=== PATIENT | female | born 1935 | race Caucasian/White ===

== ENCOUNTER 2020-08-08 10:58 | Emergency (ER) | payer MEDICARE, BC ==
[2020-08-08] MEDS ORDERED: Sodium Chloride 0.9% 10 ML Syringe FLUSH PRN (11:05)
[2020-08-08] MEDS ORDERED: Pantoprazole 40 MG Vial IVPUSH ONE (11:36)
[2020-08-08 11:42] LABS: CHLORIDE,CL 101 mmol/L (98-107); PTT,PARTIAL THROMBOPLSTIN TIME 17.5 SEC (25.6-32.8); SODIUM,NA 139 mmol/L (136-145)
--- NOTE | 2020-08-08 12:09 | EDM.PDOC ---
ED HPI GENERAL MEDICAL PROBLEM - General Stated Complaint: WEAKNESS Time Seen by Provider: 08/08/20 11:00 Source of Information: Reports: Patient, Provider History Limitations: Reports: No Limitations - History of Present Illness INITIAL COMMENTS - FREE TEXT/NARRATIVE: Pt. presents to ER from clinic with complaints of weakness. Pt. states that she has been experiencing shortness of breath, fatigue, and weakness. She was seen in the clinic 08/05. At that time, her HGB was found to be 7.6. Pt. has a history of iron deficiency anemia and B12 deficiency. On 07/12 her HGB was 9.3. Pt. states that she is not on any anticoagulants. She denies any history of liver disease or alcohol consumption. Pt. states that she is very active. She states that she walks every day, and states that she mows her own lawn as well as her neighbors lawn. She denies any chest pain. No shortness of breath. Denies any hematemesis. No melena. Denies any hematochezia. Pt. is a [facility]. Her PCP stated that she contacted [facility] 1 call but they would not accept the patient. In clinic, pt. BP was in the 80s systolic. She has been tachycardic with HR in the 110 range. Pt. denies any abdominal pain. Onset: Today Onset Date: 08/08/20 Location: Reports: Generalized - Related Data Allergies Allergy/AdvReac Type Severity Reaction Status Date / Time clindamycin AdvReac Vomiting Verified 06/14/20 10:45 hydrocodone AdvReac Vomiting Verified 06/14/20 10:45 Penicillins AdvReac Vomiting Verified 06/14/20 10:45 Home Meds: Home Meds Aspirin 325 mg PO DAILY 06/14/20 [History] Calcium Carbonate/Vitamin D3 [Caltrate 600 + D Soft Chew Tab] 1 each PO BID 06/14/20 [History] Ferrous Sulfate [Iron] 325 mg PO DAILY 06/14/20 [History] Folic Acid 0.4 mg PO DAILY 06/14/20 [History] Ibuprofen 200 mg PO Q4H PRN 06/14/20 [History] [place]-3 Fatty Acids/Fish Oil [Fish Oil 1,000 mg Capsule] 2 each PO DAILY 06/14/20 [History] Quinapril [Accupril] 20 mg PO DAILY 06/14/20 [History] Simvastatin 10 mg PO BEDTIME 06/14/20 [History] Vitamin E 400 unit PO DAILY 06/14/20 [History] estradioL [Susie] 1 each TOP Q7D 06/14/20 [History] hydroCHLOROthiazide [Hydrochlorothiazide] 25 mg PO DAILY 06/14/20 [History] Past Medical History HEENT History: Reports: Cataract, Other (See Below) Other HEENT History: presbyopia, hypermetropia, astigmatism Cardiovascular History: Reports: High Cholesterol, Hypertension, Other (See Below) Other Cardiovascular History: valvular heart disease, nonrheumatic aortic valve stenosis Gastrointestinal History: Reports: Other (See Below) Other Gastrointestinal History: disorder of ileum Musculoskeletal History: Reports: Back Pain, Chronic, Other (See Below) Other Musculoskeletal History: spinal stenosis with neurogenic claudication, spondylolisthesis, SI pain Endocrine/Metabolic History: Reports: Hyperparathyroidism, Osteopenia, Vitamin D Deficiency, Other (See Below) Other Endocrine/Metabolic History: hyperglycemia, hyponatremia Hematologic History: Reports: Anemia, B12 Deficiency, Iron Deficiency - Past Surgical History Endocrine Surgical History: Reports: Parathyroidectomy Musculoskeletal Surgical History: Reports: Carpal Tunnel, Other (See Below) Other Musculoskeletal Surgeries/Procedures:: lumbar spinal fusion, ED ROS GENERAL - Review of Systems Review Of Systems: See Below Constitutional: Reports: Malaise, Weakness, Fatigue. Denies: Fever, Chills, Diaphoresis HEENT: Reports: No Symptoms Respiratory: Reports: Shortness of Breath Cardiovascular: Reports: No Symptoms Endocrine: Reports: No Symptoms GI/Abdominal: Denies: Abdominal Pain, Constipation, Diarrhea, Hematemesis, Hematochezia, Melena : Reports: No Symptoms Musculoskeletal: Reports: No Symptoms Skin: Reports: No Symptoms Neurological: Reports: No Symptoms Psychiatric: Reports: No Symptoms Hematologic/Lymphatic: Reports: No Symptoms Immunologic: Reports: No Symptoms ED EXAM, GENERAL - Physical Exam Exam: See Below Exam Limited By: No Limitations General Appearance: Alert, WD/WN, No Apparent Distress Nose: Normal Inspection, No Blood Throat/Mouth: Normal Inspection, Normal Lips, Normal Oropharynx, Normal Voice, No Airway Compromise Head: Atraumatic, Normocephalic Neck: Normal Inspection, Supple, Non-Tender Respiratory/Chest: No Respiratory Distress, Lungs Clear, Normal Breath Sounds, No Accessory Muscle Use, Chest Non-Tender Cardiovascular: Normal Peripheral Pulses, Regular Rate, Rhythm, No JVD, Systolic Murmur (Female) Exam: Deferred Rectal (Female) Exam: Hemorrhoids, Other (scant, dark, coffee ground type stool noted on exam.) Back Exam: Normal Inspection, Full Range of Motion Extremities: Normal Inspection, Normal Range of Motion, Non-Tender, No Pedal Edema, Normal Capillary Refill Neurological: Alert, Oriented, CN II-XII Intact, Normal Cognition, Normal Gait, Normal Reflexes, No Motor/Sensory Deficits Psychiatric: Normal Affect, Normal Mood Skin Exam: Warm, Dry, Intact, No Rash, Pallor Lymphatic: No Adenopathy Course - Orders/Labs/Meds Orders: Active Orders 24 hr Category Date Time Status CORONAVIRUS COVID-19 CRYSTAL [MOLEC] Stat Lab 08/08/20 11:52 Ordered FECAL OCCULT BLOOD,POC DIAG [POC] Stat Lab 08/08/20 11:08 Ordered RED BLOOD CELLS LP [BBK] Urgent Lab 08/08/20 11:50 Ordered TYPE AND SCREEN [BBK] Urgent Lab 08/08/20 11:50 Ordered Sodium Chloride 0.9% [Saline Flush] Med 08/08/20 11:05 Active 10 ml FLUSH ASDIRECTED PRN Blood Transfusion Reflex Orders [OM.PC] Routine Oth 08/08/20 11:07 Ordered Blood Transfusion Reflex Orders [OM.PC] Routine Oth 08/08/20 11:50 Ordered Peripheral IV Insertion Adult [OM.PC] Routine Oth 08/08/20 11:06 Ordered Transfuse Red Blood Cells [COMM] Routine Oth 08/08/20 11:07 Ordered Medication Orders Sodium Chloride (Sodium Chloride 0.9% 10 Ml Syringe) 10 ml FLUSH ASDIRECTED PRN PRN Reason: Keep Vein Open Labs: Laboratory Tests 08/08/20 08/08/20 08/08/20 Range/Units 11:08 11:08 11:08 WBC 8.7 (4.0-10.0) x10^3/uL RBC 1.79 L (4.00-5.50) x10^6/uL Hgb 5.9 L* (12.0-16.0) g/dL Hct 19.3 L (33.0-47.0) % MCV 107.8 H (78.0-93.0) fL MCH 33.0 H (26.0-32.0) pg MCHC 30.6 L (32.0-36.0) g/dL RDW Coeff of Anabelle 16.2 H (10.0-15.0) % Plt Count 243 (130-400) x10^3/uL Neut % (Auto) 87.4 H (50.0-80.0) % Lymph % (Auto) 8.5 L (25.0-50.0) % Cuming % (Auto) 3.8 (2.0-11.0) % Eos % (Auto) 0.1 (0.0-4.0) % Baso % (Auto) 0.2 (0.2-1.2) % PT 10.7 (9.9-12.5) SEC INR 1.0 L (2.0-3.5) APTT 17.5 L (25.6-32.8) SEC Sodium 139 (136-145) mmol/L Potassium 3.0 L (3.5-5.1) mmol/L Chloride 101 (98-107) mmol/L Carbon Dioxide 30 (21-32) mmol/L Anion Gap 11.0 (5-15) mmol/L BUN 32 H (7-18) mg/dL Creatinine 0.8 (0.55-1.02) mg/dL Est Cr Clr Drug Dosing TNP Estimated GFR (MDRD) > 60 Glucose 129 H (70-99) mg/dL Calcium 9.2 (8.5-10.1) mg/dL Corrected Calcium 10.3 H (8.5-10.1) mg/dL Magnesium 1.7 L (1.8-2.4) mg/dL Total Bilirubin 0.2 (0.2-1.0) mg/dL AST 21 (15-37) U/L ALT 18 (14-59) U/L Alkaline Phosphatase 40 L (46-116) U/L C-Reactive Protein < 0.2 (<=0.9) mg/dL Total Protein 8.3 H (6.4-8.2) g/dL Albumin 2.6 L (3.4-5.0) g/dL Globulin 5.7 Albumin/Globulin Ratio 0.46 TSH, Ultra Sensitive 4.882 H (0.358-3.74) uIU/mL Meds: Medications Generic Name Dose Route Start Last Admin Trade Name Bishop PRN Reason Stop Dose Admin Sodium Chloride 10 ml 08/08/20 11:05 Sodium Chloride 0.9% 10 Ml Syringe FLUSH ASDIRECTED PRN Keep Vein Open Discontinued Medications Generic Name Dose Route Start Last Admin Trade Name Bishop PRN Reason Stop Dose Admin Pantoprazole Sodium 40 mg 08/08/20 11:36 08/08/20 11:45 Pantoprazole 40 Mg Vial IVPUSH 08/08/20 11:37 40 mg ONETIME ONE Administration - Re-Assessments/Exams Free Text/Narrative Re-Assessment/Exam: IV access established. 1 unit of O neg blood was ordered for the patient. She was also given protonix 40mg IV. Departure - Departure Time of Disposition: 12:13 Disposition: DC/Tfer to [facility] 02 Clinical Impression: GI bleed - Discharge Information - Problem List Review Problem List Initiated/Reviewed/Updated: Yes - My Orders Last 24 Hours: My Active Orders 08/08/20 11:05 Sodium Chloride 0.9% [Saline Flush] 10 ml FLUSH ASDIRECTED PRN 08/08/20 11:06 Peripheral IV Insertion Adult [OM.PC] Routine 08/08/20 11:07 Blood Transfusion Reflex Orders [OM.PC] Routine Transfuse Red Blood Cells [COMM] Routine 08/08/20 11:08 FECAL OCCULT BLOOD,POC DIAG [POC] Stat 08/08/20 11:50 RED BLOOD CELLS LP [BBK] Urgent TYPE AND SCREEN [BBK] Urgent Blood Transfusion Reflex Orders [OM.PC] Routine 08/08/20 11:52 CORONAVIRUS COVID-19 CRYSTAL [MOLEC] Stat - Assessment/Plan Last 24 Hours: My Active Orders 08/08/20 11:05 Sodium Chloride 0.9% [Saline Flush] 10 ml FLUSH ASDIRECTED PRN 08/08/20 11:06 Peripheral IV Insertion Adult [OM.PC] Routine 08/08/20 11:07 Blood Transfusion Reflex Orders [OM.PC] Routine Transfuse Red Blood Cells [COMM] Routine 08/08/20 11:08 FECAL OCCULT BLOOD,POC DIAG [POC] Stat 08/08/20 11:50 RED BLOOD CELLS LP [BBK] Urgent TYPE AND SCREEN [BBK] Urgent Blood Transfusion Reflex Orders [OM.PC] Routine 08/08/20 11:52 CORONAVIRUS COVID-19 CRYSTAL [MOLEC] Stat Plan: Pt. will be transferred to [facility] in [place]. Dr. Clark accepts the patient in transfer. Pt. indicates that she is a code 1. Pt. will be transported via [facility] ground ambulance.
== END 2020-08-08 14:18 | disposition short-term general hospital (02) ==
LOC: VM.ED 10:58
DX: K92.2 Gastrointestinal hemorrhage, unspecified (principal); I10 Essential (primary) hypertension; Z88.0 Allergy status to penicillin; Z88.1 Allergy status to other antibiotic agents; Z88.5 Allergy status to narcotic agent; Z20.822 Contact with and (suspected) exposure to COVID-19; Z79.82 Long term (current) use of aspirin
CPT/HCPCS: 36415; 36430; 80053; 83735; 84443; 85025; 85610; 85730; 86140; 86850; 86900; 86901; 86920; 86922; 96374; 99284; 99285-25; C9113; G0328; P9016; U0002

== ENCOUNTER 2021-01-23 13:27 | Emergency (ER) | payer MEDICARE, BC ==
--- NOTE | 2021-01-23 13:47 | EDM.PDOC ---
ED HPI GENERAL MEDICAL PROBLEM - General Chief Complaint: Laceration Stated Complaint: CUT FINGER Time Seen by Provider: 01/23/21 13:35 Source of Information: Reports: Patient - History of Present Illness INITIAL COMMENTS - FREE TEXT/NARRATIVE: Bhavani is an 85 y/o female who is brought to the ER with a left middle finger injury. She was using her lawn screw remover and did not shut it off and stuck her finger in the chute to unplug it. She presents with a significant injury to the finger. - Related Data Allergies Allergy/AdvReac Type Severity Reaction Status Date / Time clindamycin AdvReac Vomiting Verified 01/23/21 13:30 hydrocodone AdvReac Vomiting Verified 01/23/21 13:30 Penicillins AdvReac Vomiting Verified 01/23/21 13:30 Home Meds: Home Meds Aspirin 162 mg PO DAILY 06/14/20 [History] Calcium Carbonate/Vitamin D3 [Caltrate 600 + D Soft Chew Tab] 2 tab PO DAILY 06/14/20 [History] Ferrous Sulfate [Iron] 325 mg PO TID 06/14/20 [History] Folic Acid 0.4 mg PO DAILY 06/14/20 [History] Ibuprofen 200 mg PO Q4H PRN 06/14/20 [History] [place]-3 Fatty Acids/Fish Oil [Fish Oil 1,000 mg Capsule] 2 tab PO DAILY 06/14/20 [History] Quinapril [Accupril] 20 mg PO DAILY 06/14/20 [History] Simvastatin 10 mg PO BEDTIME 06/14/20 [History] Vitamin E 400 unit PO DAILY 06/14/20 [History] estradioL [Susie] 1 each TOP Q7D 06/14/20 [History] hydroCHLOROthiazide [Hydrochlorothiazide] 25 mg PO DAILY 06/14/20 [History] Past Medical History HEENT History: Reports: Cataract, Other (See Below) Other HEENT History: presbyopia, hypermetropia, astigmatism Cardiovascular History: Reports: High Cholesterol, Hypertension, Other (See Below) Other Cardiovascular History: valvular heart disease, nonrheumatic aortic valve stenosis Gastrointestinal History: Reports: Other (See Below) Other Gastrointestinal History: disorder of ileum Musculoskeletal History: Reports: Back Pain, Chronic, Other (See Below) Other Musculoskeletal History: spinal stenosis with neurogenic claudication, spondylolisthesis, SI pain Endocrine/Metabolic History: Reports: Hyperparathyroidism, Osteopenia, Vitamin D Deficiency, Other (See Below) Other Endocrine/Metabolic History: hyperglycemia, hyponatremia Hematologic History: Reports: Anemia, B12 Deficiency, Iron Deficiency - Past Surgical History Endocrine Surgical History: Reports: Parathyroidectomy Musculoskeletal Surgical History: Reports: Carpal Tunnel, Other (See Below) Other Musculoskeletal Surgeries/Procedures:: lumbar spinal fusion, Social & Family History - Family History Family Medical History: No Pertinent Family History ED ROS GENERAL - Review of Systems Review Of Systems: See Below Constitutional: Reports: No Symptoms HEENT: Reports: No Symptoms Respiratory: Reports: No Symptoms Cardiovascular: Reports: No Symptoms Endocrine: Reports: No Symptoms GI/Abdominal: Reports: No Symptoms : Reports: No Symptoms Musculoskeletal: Reports: Other (Left middle finger injury) Skin: Reports: No Symptoms Neurological: Reports: No Symptoms Psychiatric: Reports: No Symptoms Hematologic/Lymphatic: Reports: No Symptoms ED EXAM, SKIN/RASH Exam: See Below Exam Limited By: No Limitations General Appearance: Alert, WD/WN, No Apparent Distress (Elderly female) Ears: Hearing Grossly Normal Throat/Mouth: Normal Voice Head: Atraumatic, Normocephalic Respiratory/Chest: No Respiratory Distress GI/Abdominal: Soft (Female) Exam: Deferred Rectal (Female) Exam: Deferred Extremities: Other (Note irregular laceration, entire distal end of left middle finger is mangled and nail gone, bone exposed, mildly bleeding.) Neurological: Alert, Oriented, CN II-XII Intact Psychiatric: Normal Affect, Normal Mood Skin: Warm, Dry, Intact, Normal Color Course - Vital Signs Text/Narrative:: 1335 The patient was seen by the HOUSING DEVELOPMENT SPECIALIST. Xray ordered. Pressure dressing applied to the finger. 1345 Xray reviewed, note distal phalanx fractured in multiple pieces. Pressure dressing applied. [facility] contacted and Dr Simmons accepted the patient to the ER. Ancef 1gm IVP and Fentanyl 25mcg IVP ordered. Tetanus encouraged, but patient undecided if she will take one since she became quite ill with her last one. 1410 [id number] here in the ER and will take patient to [place] via POV. She remained stable until departure for [facility]. Last Recorded V/S: Last Vital Signs Temp 36.8 C 01/23/21 13:30 Pulse 115 H 01/23/21 13:30 Resp 20 11/04/21 13:30 BP 174/85 H 01/23/21 13:30 Pulse Ox 96 01/23/21 13:30 - Orders/Labs/Meds Orders: Active Orders 24 hr Category Date Time Status NPO [Nothing Per Oral Diet] [DIET] Diet 01/23/21 Dinner Ordered Fingers Third Digit Lt F2 [CR] Stat Exams 01/23/21 13:37 Ordered Meds: Medications Discontinued Medications Generic Name Dose Route Start Last Admin Trade Name Bishop PRN Reason Stop Dose Admin Cefazolin Sodium 1 gm 01/23/21 13:55 Cefazolin 1 Gm Vial IVPUSH 01/23/21 13:56 ONETIME ONE Fentanyl 25 mcg 01/23/21 13:54 Fentanyl 50 Mcg/Ml Sdv IVPUSH 01/23/21 13:55 ONETIME ONE Departure - Departure Time of Disposition: 14:03 Disposition: DC/Tfer to Acute Hospital 02 Condition: Good Clinical Impression: Accidental injury Fracture, finger, distal phalanx, open Qualifiers: Encounter type: initial encounter Finger: middle finger Fracture alignment: displaced Laterality: left Qualified Code(s): S62.633B - Displaced fracture of distal phalanx of left middle finger, initial encounter for open fracture Contact with powered lawnmower as cause of accidental injury Qualifiers: Encounter type: initial encounter Qualified Code(s): W28.XXXA - Contact with powered project control officer, initial encounter - Discharge Information Referrals: So Frank MD [Primary Care Provider] - Forms: ED Department Discharge, Interfacility Transfer EMTALA Additional Instructions: -Transfer to [facility] to Dr Simmons Sepsis Event Note (ED) - Focused Exam Vital Signs: Vital Signs Temp Pulse Resp BP Pulse Ox 01/23/21 13:30 36.8 C 115 H 20 174/85 H 96 - Problem List & Annotations (1) Accidental injury SNOMED Code(s): 253560085 Code(s): T14.90XA - INJURY, UNSPECIFIED, INITIAL ENCOUNTER Status: Acute Current Visit: Yes (2) Contact with powered lawnmower as cause of accidental injury SNOMED Code(s): 675918228, 669140210 Code(s): W28.XXXA - CONTACT WITH POWERED MUD ANALYSIS SUPERVISOR, INITIAL ENCOUNTER Status: Acute Current Visit: Yes Qualifiers: Encounter type: initial encounter Qualified Code(s): W28.XXXA - Contact with powered project control officer, initial encounter (3) Fracture, finger, distal phalanx, open SNOMED Code(s): 22939473 Code(s): S62.639B - DISP FX OF DISTAL PHALANX OF UNSP FINGER, INIT FOR OPN FX Status: Acute Current Visit: Yes Annotation/Comment:: Xrays sent to [facility]. Wound dressed here in the ER. Ancer 1gm IVP and Fentanyl 25mcg IVP given. Transfer to [facility] for Ortho consult. Qualifiers: Encounter type: initial encounter Finger: middle finger Fracture alignment: displaced Laterality: left Qualified Code(s): S62.633B - Displaced fracture of distal phalanx of left middle finger, initial encounter for open fracture - Problem List Review Problem List Initiated/Reviewed/Updated: Yes - My Orders Last 24 Hours: My Active Orders 01/23/21 13:37 Fingers Third Digit Lt F2 [CR] Stat 01/23/21 Dinner NPO [Nothing Per Oral Diet] [DIET] - Assessment/Plan Last 24 Hours: My Active Orders 01/23/21 13:37 Fingers Third Digit Lt F2 [CR] Stat 01/23/21 Dinner NPO [Nothing Per Oral Diet] [DIET] Plan: See above
[2021-01-23] MEDS ORDERED: fentaNYL 50 MCG/ML SDV IVPUSH ONE (13:54)
[2021-01-23] MEDS ORDERED: ceFAZolin 1 GM Vial IVPUSH ONE (13:55)
[2021-01-23] MEDS ORDERED: Ondansetron 4 MG/2 ML SDV IVPUSH ONE (14:15)
--- NOTE | 2021-01-23 14:17 | CR ---
[id number] RAD/RAD Fingers Left EXAM: 3 VIEWS LEFT 3RD DIGIT. INDICATION: FINGER INJURY,CAUGHT IN PLATFORM INSPECTOR. COMPARISON: None. DISCUSSION: Acute multi fragmentary fracture involving the distal phalanx of the 3rd digit. There are numerous fracture fragments identified. There is a significant associated soft tissue defect. Degenerative changes most pronounced involving the visualized distal interphalangeal joints IMPRESSION: 1. As above. Adan Beckford DO 01/23/21 1416 Thank you for allowing us to participate in the care of your patient.
== END 2021-01-23 14:26 | disposition short-term general hospital (02) ==
LOC: VM.ED 13:27
DX: S62.633B Displaced fracture of distal phalanx of left middle finger, initial encounter for open fracture (principal); E78.00 Pure hypercholesterolemia, unspecified; I10 Essential (primary) hypertension; Z88.0 Allergy status to penicillin; Z88.1 Allergy status to other antibiotic agents; Z88.5 Allergy status to narcotic agent; Z79.82 Long term (current) use of aspirin; Z79.899 Other long term (current) drug therapy; W28.XXXA Contact with powered lawn mower, initial encounter
CPT/HCPCS: 73140-F2; 96374; 96375; 99283; 99283-25; J0690; J2405; J3010

== ENCOUNTER 2021-01-25 11:35 | Emergency (ER) | payer MEDICARE, BC ==
[2021-01-25] MEDS ORDERED: Take Home: Acetaminophen/Codeine 300 MG/30 MG, 5 Tab Pack PO ONE (12:59)
--- NOTE | 2021-01-25 13:28 | EDM.PDOC ---
ED HPI GENERAL MEDICAL PROBLEM - General Stated Complaint: FINGER WONT STOP BLEEDING Time Seen by Provider: 01/25/21 11:45 Source of Information: Reports: Patient, Family History Limitations: Reports: No Limitations - History of Present Illness INITIAL COMMENTS - FREE TEXT/NARRATIVE: Pt. states that she caught her finger in the daycare assistant on , amputating the tip of the finger. She underwent sugery to debride and close the injury at [facility] at that time. Several sutures were placed, and a dressing was applied. She states that she started bleeding through the dressing last night. She states that she is not anticoagulated. Denies any injury elsewhere. Onset: Today Onset Date: 01/25/21 Location: Reports: Upper Extremity, Left - Related Data Allergies Allergy/AdvReac Type Severity Reaction Status Date / Time clindamycin AdvReac Vomiting Verified 01/25/21 13:34 hydrocodone AdvReac Vomiting Verified 01/25/21 13:34 Penicillins AdvReac Vomiting Verified 01/25/21 13:34 Home Meds: Home Meds Aspirin 162 mg PO DAILY 06/14/20 [History] Calcium Carbonate/Vitamin D3 [Caltrate 600 + D Soft Chew Tab] 2 tab PO DAILY 06/14/20 [History] Ferrous Sulfate [Iron] 325 mg PO TID 06/14/20 [History] Folic Acid 0.4 mg PO DAILY 06/14/20 [History] Ibuprofen 200 mg PO Q4H PRN 06/14/20 [History] [place]-3 Fatty Acids/Fish Oil [Fish Oil 1,000 mg Capsule] 2 tab PO DAILY 06/14/20 [History] Quinapril [Accupril] 20 mg PO DAILY 06/14/20 [History] Simvastatin 10 mg PO BEDTIME 06/14/20 [History] Vitamin E 400 unit PO DAILY 06/14/20 [History] estradioL [Susie] 1 each TOP Q7D 06/14/20 [History] hydroCHLOROthiazide [Hydrochlorothiazide] 25 mg PO DAILY 06/14/20 [History] Past Medical History HEENT History: Reports: Cataract, Other (See Below) Other HEENT History: presbyopia, hypermetropia, astigmatism Cardiovascular History: Reports: High Cholesterol, Hypertension, Other (See Below) Other Cardiovascular History: valvular heart disease, nonrheumatic aortic valve stenosis Gastrointestinal History: Reports: Other (See Below) Other Gastrointestinal History: disorder of ileum Musculoskeletal History: Reports: Back Pain, Chronic, Other (See Below) Other Musculoskeletal History: spinal stenosis with neurogenic claudication, spondylolisthesis, SI pain Endocrine/Metabolic History: Reports: Hyperparathyroidism, Osteopenia, Vitamin D Deficiency, Other (See Below) Other Endocrine/Metabolic History: hyperglycemia, hyponatremia Hematologic History: Reports: Anemia, B12 Deficiency, Iron Deficiency - Past Surgical History Endocrine Surgical History: Reports: Parathyroidectomy Musculoskeletal Surgical History: Reports: Carpal Tunnel, Other (See Below) Other Musculoskeletal Surgeries/Procedures:: lumbar spinal fusion, Social & Family History - Family History Family Medical History: No Pertinent Family History ED ROS GENERAL - Review of Systems Review Of Systems: Comprehensive ROS is negative, except as noted in HPI. ED EXAM, GENERAL - Physical Exam Exam: See Below Exam Limited By: No Limitations General Appearance: Alert, WD/WN, No Apparent Distress Extremities: Other (Evidence of surgical repair to tip of L finger. [address]. Active bleeding from several areas.) Course - Orders/Labs/Meds Labs: Laboratory Tests 01/25/21 01/25/21 01/25/21 Range/Units 12:45 12:45 12:45 WBC 2.9 L (4.0-10.0) x10^3/uL RBC 2.68 L (4.00-5.50) x10^6/uL Hgb 8.8 L (12.0-16.0) g/dL Hct 27.9 L (33.0-47.0) % MCV 104.1 H (78.0-93.0) fL MCH 32.8 H (26.0-32.0) pg MCHC 31.5 L (32.0-36.0) g/dL RDW Coeff of Anabelle 14.0 (10.0-15.0) % Plt Count 152 (130-400) x10^3/uL Immature Gran % (Auto) 0.00 (0.00-0.43) % Neut % (Auto) 69.9 (50.0-80.0) % Lymph % (Auto) 21.5 L (25.0-50.0) % [place] % (Auto) 8.0 (2.0-11.0) % Eos % (Auto) 0.3 (0.0-4.0) % Baso % (Auto) 0.3 (0.2-1.2) % Neut # (Auto) 2.0 (1.8-7.7) x10^3/uL Lymph # (Auto) 0.6 L (1.0-4.8) x10^3/uL [place]oup # (Auto) 0.2 (0.0-0.8) x10^3/uL Eos # (Auto) 0.0 (0.0-0.5) x10^3/uL Baso # (Auto) 0.0 (0.0-0.2) x10^3/uL Immature Gran # (Auto) 0.00 (0.00-0.07) x10^3/uL PT 10.9 (9.9-12.5) SEC INR 1.0 L (2.0-3.5) APTT 27.8 (25.6-32.8) SEC Meds: Medications Discontinued Medications Generic Name Dose Route Start Last Admin Trade Name Bishop PRN Reason Stop Dose Admin Acetaminophen/Codeine Phosphate 1 packet 01/25/21 12:59 01/25/21 13:27 Take Home: Acetaminophen/Codeine 300 Mg/30 Mg, 5 Tab Pack PO 01/25/21 13:00 1 packet ONETIME ONE Administration - Re-Assessments/Exams Free Text/Narrative Re-Assessment/Exam: Pressure dressing applied but was unsuccessful. Hemostatic gauze applied but it continued to bleed. Areas of active bleeding were small and were cauterized with silver nitrate. Hemostatic gauze applied over the area and tube gauze pressure dressing applied. Pt. observed. No further bleeding noted. Departure - Departure Time of Disposition: 13:00 Disposition: Home, Self-Care 01 Clinical Impression: Post-op bleeding - Discharge Information Instructions: Acetaminophen; Hydrocodone oral solution Referrals: So Frank MD [Primary Care Provider] - Additional Instructions: Lortab 5/325mg 1 every 4-6 hours as needed for pain Keep hand raised above heart Return to ER if you bleed through the dressing. Follow-up with PCP/surgeon as needed. - Problem List Review Problem List Initiated/Reviewed/Updated: Yes - Assessment/Plan Plan: Pt. was discharged. Advised to keep her hand elevated above her heart. Recheck in clinic in 4-5 days. Sutures out per hand surgery recommendation. Return to ER if continued bleeding is noted.
== END 2021-01-25 13:20 | disposition home or self-care (01) ==
LOC: VM.ED 11:35
DX: M96.831 Postprocedural hemorrhage of a musculoskeletal structure following other procedure (principal); S61.219A Laceration without foreign body of unspecified finger without damage to nail, initial encounter; E78.00 Pure hypercholesterolemia, unspecified; I10 Essential (primary) hypertension; Z88.0 Allergy status to penicillin; Z88.1 Allergy status to other antibiotic agents; Z88.5 Allergy status to narcotic agent; Z79.82 Long term (current) use of aspirin; Z79.899 Other long term (current) drug therapy; W23.0XXA Caught, crushed, jammed, or pinched between moving objects, initial encounter
CPT/HCPCS: 12001; 36415; 85025; 85610; 85730; 99283; 99283-25; A9270-GY

== ENCOUNTER 2022-11-06 08:21 | Day surgery (SDC) | payer MEDICARE, BC ==
[~2022-11-06 08:21] MED LIST: Lactated Ringers 1,000 ML IV SCH
[2022-11-06] MEDS ORDERED: Lidocaine 4% 5 ML Amp ONE (10:30)
[2022-11-06] MEDS ORDERED: Propofol 200 MG/20 ML SDV ONE (10:43)
[2022-12-03] MEDS ORDERED: Lactated Ringers 1,000 ML IV SCH (07:00)
== END 2022-11-06 12:16 | disposition home or self-care (01) ==
LOC: VM.SDS 08:21
PROVIDERS: ATTEND Student in an Organized Health Care Education/Training Program
DX: K29.50 Unspecified chronic gastritis without bleeding (principal); K31.5 Obstruction of duodenum; K31.89 Other diseases of stomach and duodenum; I10 Essential (primary) hypertension; E78.00 Pure hypercholesterolemia, unspecified; I35.0 Nonrheumatic aortic (valve) stenosis; E21.3 Hyperparathyroidism, unspecified; E53.8 Deficiency of other specified B group vitamins; E87.1 Hypo-osmolality and hyponatremia; D50.0 Iron deficiency anemia secondary to blood loss (chronic); C88.0 Waldenstrom macroglobulinemia; Z98.890 Other specified postprocedural states; Z88.0 Allergy status to penicillin; Z88.1 Allergy status to other antibiotic agents; Z88.5 Allergy status to narcotic agent; Z88.6 Allergy status to analgesic agent; Z79.899 Other long term (current) drug therapy
CPT/HCPCS: 00731; 88305; C1726; J2704; J7120

== ENCOUNTER 2024-04-14 15:00 | Emergency (ER) | payer MEDICARE, BC | END 2024-04-14 16:50 | disposition home or self-care (01) | LOC: VM.ED 15:00 | DX: S72.001A Fracture of unspecified part of neck of right femur, initial encounter for closed fracture (principal); I10 Essential (primary) hypertension; E78.00 Pure hypercholesterolemia, unspecified; Z88.0 Allergy status to penicillin; Z88.1 Allergy status to other antibiotic agents; Z88.8 Allergy status to other drugs, medicaments and biological substances; Z79.899 Other long term (current) drug therapy; Z90.710 Acquired absence of both cervix and uterus; W19.XXXA Unspecified fall, initial encounter | CPT/HCPCS: 72192; 99283 ==

== ENCOUNTER 2024-07-20 08:22 | Inpatient (IN) | payer MEDICARE, BC ==
[2024-07-20] MEDS ORDERED: Ondansetron 4 MG Tab.DIS PO PRN (13:35)
[2024-07-20] MEDS: Acetaminophen 325 MG Tab PO SCH ×2 (17:24→21:05)
[2024-07-20] MEDS: Calcium Carbonate/Vitamin D3 1250 MG-5 MCG Tab PO SCH (17:24)
[2024-07-20] MEDS ORDERED: Mineral Oil/Petrolatum Ophth Oint 3.5 GM Tube EYEBOTH SCH (21:00)
[2024-07-20] MEDS ORDERED: REFRESH OPTIVE EYEBOTH SCH (21:00)
[2024-07-20] MEDS: Aloe Vera/Sodium Chloride Gel 14.1 GM Tube NAS SCH (21:02)
[2024-07-20] MEDS: Melatonin 3 MG Tab PO SCH (21:03)
[2024-07-20] MEDS: Sennosides/Docusate Sodium 50-8.6 MG Tab PO SCH (21:04)
[2024-07-20] MEDS: Famotidine 20 MG Tab PO SCH (21:05)
[2024-07-20] MEDS: REFRESH OPTIVE EYEBOTH SCH (21:08)
[2024-07-20] MEDS: Calcium Carbonate 750 MG Tab.Chew PO SCH (21:15)
[2024-07-20] MEDS: Melatonin 3 MG Tab PO ONE (23:11)
[2024-07-20] MEDS: oxyCODONE 5 MG Tab PO PRN (23:11)
[2024-07-21 07:15] LABS: BASOPHILS PERCENT AUTO 0.3 % (0.2-1.2); EOSINOPHILS PERCENT AUTO 0.9 % (0.0-4.0); HEMOGLOBIN 7.3 g/dL (12.0-16.0); LYMPHOCYTES ABSOLUTE AUTO 0.7 x10^3/uL (1.0-4.8); LYMPHOCYTES PERCENT AUTO 18.6 % (25.0-50.0); MEAN CORPUSCULAR HEMOGLOBIN 29.8 pg (26.0-32.0); MEAN CORPUSCULAR HGB CONC 31.7 g/dL (32.0-36.0); MEAN CORPUSCULAR VOLUME 93.9 fL (78.0-93.0); MONOCYTES ABSOLUTE AUTO 0.4 x10^3/uL (0.0-0.8); MONOCYTES PERCENT AUTO 11.7 % (2.0-11.0); NEUTROPHILS ABSOLUTE AUTO 2.4 x10^3/uL (1.8-7.7); NEUTROPHILS PERCENT AUTO 68.5 % (50.0-80.0); PLATELET COUNT,PLT 185 x10^3/uL (130-400); RED BLOOD CELL COUNT 2.45 x10^6/uL (4.00-5.50); WHITE BLOOD CELL COUNT,WBC 3.5 x10^3/uL (4.0-10.0)
[2024-07-21 07:22] LABS: APPEARANCE,URINE CLEAR (CLEAR); BILIRUBIN,URINE NEGATIVE (NEGATIVE); COLOR,URINE YELLOW (YELLOW); GLUCOSE,URINE NEGATIVE (NEGATIVE); KETONES,URINE NEGATIVE (NEGATIVE); LEUKOCYTE ESTERASE,URINE NEGATIVE (NEGATIVE); NITRITE,URINE NEGATIVE (NEGATIVE); OCCULT BLOOD,URINE NEGATIVE (NEGATIVE); PROTEIN,URINE 30 mg/dL (NEGATIVE)
[2024-07-21 07:33] LABS: BACTERIA,URINE RARE /HPF (NOT SEEN); EPITHELIAL CELLS,URINE FEW; RBC,URINE 0-5 /HPF (NOT SEEN); WBC,URINE 0-5 /HPF (NOT SEEN)
[2024-07-21 07:36] LABS: A/G RATIO 0.68; ALBUMIN 2.3 g/dL (3.4-5.0); BILIRUBIN TOTAL 0.8 mg/dL (0.2-1.0); CALCIUM 8.4 mg/dL (8.5-10.1); CREATININE 0.7 mg/dL (0.55-1.02); EST CRCL DRUG DOSING (CG) 42.73 mL/min; MAGNESIUM 1.5 mg/dL (1.8-2.4); POTASSIUM,K 3.7 mmol/L (3.5-5.1); PROTEIN TOTAL,TP 5.7 g/dL (6.4-8.2)
[2024-07-21 07:37] LABS: ANION GAP 10.7 mmol/L (5-15)
[2024-07-21] MEDS: Cyanocobalamin (Vitamin B12) 1,000 MCG Tab PO SCH (08:37)
[2024-07-21] MEDS: Lisinopril 20 MG Tab PO SCH (08:38)
[2024-07-21] MEDS: Polyethylene Glycol 3350 Powder 17 GM Packet PO SCH (08:42)
[2024-07-21] MEDS: Enoxaparin 40 MG/0.4 ML Syringe SUBCUT SCH (08:42)
[2024-07-21] MEDS: Folic Acid 0.4 MG Tab PO SCH (08:46)
[2024-07-21] MEDS ORDERED: Enoxaparin 40 MG/0.4 ML Syringe SUBCUT SCH (09:00)
[2024-07-21] MEDS: Pravastatin 20 MG Tab PO SCH ×2 (10:57→21:42)
[2024-07-21] MEDS: Magnesium Oxide 400 MG Tab PO SCH ×2 (10:57→14:15)
[2024-07-21] MEDS: Calcium Carbonate 750 MG Tab.Chew PO SCH (11:19)
[2024-07-21] MEDS: Melatonin 3 MG Tab PO SCH (21:11)
[2024-07-22 07:16] LABS: BASOPHILS PERCENT AUTO 0.5 % (0.2-1.2); EOSINOPHILS PERCENT AUTO 0.7 % (0.0-4.0); HEMATOCRIT 24.1 % (33.0-47.0); HEMOGLOBIN 7.8 g/dL (12.0-16.0); LYMPHOCYTES ABSOLUTE AUTO 0.8 x10^3/uL (1.0-4.8); LYMPHOCYTES PERCENT AUTO 18.6 % (25.0-50.0); MEAN CORPUSCULAR HEMOGLOBIN 30.6 pg (26.0-32.0); MEAN CORPUSCULAR HGB CONC 32.4 g/dL (32.0-36.0); MEAN CORPUSCULAR VOLUME 94.5 fL (78.0-93.0); MONOCYTES ABSOLUTE AUTO 0.5 x10^3/uL (0.0-0.8); MONOCYTES PERCENT AUTO 12.9 % (2.0-11.0); NEUTROPHILS ABSOLUTE AUTO 2.8 x10^3/uL (1.8-7.7); NEUTROPHILS PERCENT AUTO 67.3 % (50.0-80.0); PLATELET COUNT,PLT 207 x10^3/uL (130-400); RED BLOOD CELL COUNT 2.55 x10^6/uL (4.00-5.50); WHITE BLOOD CELL COUNT,WBC 4.2 x10^3/uL (4.0-10.0)
[2024-07-22] MEDS: Magnesium Oxide 400 MG Tab PO SCH (11:30)
[2024-07-22] MEDS ORDERED: Pravastatin 20 MG Tab PO SCH (21:00)
[2024-07-22] MEDS: oxyCODONE 5 MG Tab PO PRN (23:19)
[2024-07-23] MEDS ORDERED: Temazepam 15 MG Cap PO PRN (19:56)
[2024-07-24 07:09] LABS: HEMOGLOBIN 7.6 g/dL (12.0-16.0); MEAN CORPUSCULAR HEMOGLOBIN 29.9 pg (26.0-32.0); MEAN CORPUSCULAR HGB CONC 31.7 g/dL (32.0-36.0); MEAN CORPUSCULAR VOLUME 94.5 fL (78.0-93.0); RED BLOOD CELL COUNT 2.54 x10^6/uL (4.00-5.50)
[2024-07-24 07:52] LABS: CALCIUM 8.4 mg/dL (8.5-10.1); CREATININE 0.6 mg/dL (0.55-1.02); EST CRCL DRUG DOSING (CG) 49.85 mL/min; POTASSIUM,K 3.5 mmol/L (3.5-5.1)
[2024-07-24 07:54] LABS: ANION GAP 10.5 mmol/L (5-15)
[2024-07-24] MEDS: Ferrous Sulfate 325 MG Tab PO SCH (09:01)
[2024-07-24] MEDS: Ascorbic Acid 500 MG Tab PO SCH (09:01)
[2024-07-24] MEDS: Metoprolol Succinate 25 MG Tab.ER PO SCH (11:30)
[2024-07-24] MEDS: ESTRADIOL 0.075 MG/24 HR TOP SCH (12:07)
[2024-07-24] MEDS: Calcium Carbonate 750 MG Tab.Chew PO PRN (12:22)
[2024-07-25] MEDS: ESTRADIOL 0.075 MG/24 HR TOP SCH (10:00)
[2024-07-25] MEDS ORDERED: Polyethylene Glycol 3350 Powder 17 GM Packet PO PRN (11:35)
[2024-07-25] MEDS: Acetaminophen/Diphenhydramine 500-25 MG Tab PO PRN (22:09)
[2024-07-26] MEDS: Lidocaine 4% Patch TOP PRN (01:53)
[2024-07-26] MEDS: Sennosides/Docusate Sodium 50-8.6 MG Tab PO SCH (21:09)
[2024-07-26] MEDS: Menthol 10%/Methyl Salicylate 15% 85 GM Tube TOP PRN (21:55)
[2024-07-27 07:02] LABS: HEMATOCRIT 23.6 % (33.0-47.0); HEMOGLOBIN 7.3 g/dL (12.0-16.0); MEAN CORPUSCULAR HEMOGLOBIN 30.2 pg (26.0-32.0); MEAN CORPUSCULAR HGB CONC 30.9 g/dL (32.0-36.0); MEAN CORPUSCULAR VOLUME 97.5 fL (78.0-93.0); RED BLOOD CELL COUNT 2.42 x10^6/uL (4.00-5.50); WHITE BLOOD CELL COUNT,WBC 3.5 x10^3/uL (4.0-10.0)
[2024-07-27 07:22] LABS: ANION GAP 8.5 mmol/L (5-15); CALCIUM 8.3 mg/dL (8.5-10.1); CREATININE 0.7 mg/dL (0.55-1.02); EST CRCL DRUG DOSING (CG) 42.73 mL/min; MAGNESIUM 1.6 mg/dL (1.8-2.4); POTASSIUM,K 3.5 mmol/L (3.5-5.1)
[2024-07-27] MEDS: Magnesium Oxide 400 MG Tab PO SCH (08:35)
[2024-07-29] MEDS ORDERED: Aspirin 81 MG Tab.EC PO SCH (09:00)
== END 2024-07-28 10:45 | disposition home health service (06) | DRG 948 ==
LOC: VM.MS 12:29
PROVIDERS: ADMIT Family Medicine; ATTEND Family Medicine
DX: R53.1 Weakness (principal); E87.1 Hypo-osmolality and hyponatremia; D62 Acute posthemorrhagic anemia; I10 Essential (primary) hypertension; E78.00 Pure hypercholesterolemia, unspecified; M85.80 Other specified disorders of bone density and structure, unspecified site; E21.3 Hyperparathyroidism, unspecified; G89.29 Other chronic pain; M54.9 Dorsalgia, unspecified; M54.31 Sciatica, right side; F41.9 Anxiety disorder, unspecified; C88.00 Waldenstrom macroglobulinemia not having achieved remission; E53.8 Deficiency of other specified B group vitamins; E83.42 Hypomagnesemia; M19.90 Unspecified osteoarthritis, unspecified site; M81.0 Age-related osteoporosis without current pathological fracture; I35.0 Nonrheumatic aortic (valve) stenosis; Z98.890 Other specified postprocedural states; Z88.8 Allergy status to other drugs, medicaments and biological substances; Z90.710 Acquired absence of both cervix and uterus
CPT/HCPCS: 36415; 80048; 80053; 81001; 83735; 85025; 85027; 93005; 97110-GP; 97116-GP; 97161-GP; 97165-GO; 97535-GO; A9270-GY; J1650

== ENCOUNTER 2024-08-10 10:53 | Emergency (ER) | payer MEDICARE, BC ==
[2024-08-10 12:07] LABS: MEAN CORPUSCULAR HEMOGLOBIN 29.8 pg (26.0-32.0); MEAN CORPUSCULAR HGB CONC 31.3 g/dL (32.0-36.0); MEAN CORPUSCULAR VOLUME 95.2 fL (78.0-93.0); RED BLOOD CELL COUNT 3.36 x10^6/uL (4.00-5.50)
[2024-08-10] MEDS: Ondansetron 4 MG/2 ML SDV IVPUSH ONE (12:27)
[2024-08-10 12:28] LABS: A/G RATIO 0.77; ALBUMIN 2.7 g/dL (3.4-5.0); BILIRUBIN TOTAL 0.5 mg/dL (0.2-1.0); CALCIUM 8.4 mg/dL (8.5-10.1); CREATININE 0.7 mg/dL (0.55-1.02); EST CRCL DRUG DOSING (CG) 42.73 mL/min; POTASSIUM,K 3.1 mmol/L (3.5-5.1); PROTEIN TOTAL,TP 6.2 g/dL (6.4-8.2)
[2024-08-10 12:29] LABS: ANION GAP 12.1 mmol/L (5-15)
[2024-08-10] MEDS ORDERED: Lidocaine 4% 5 ML Amp TOP ONE (13:27)
[2024-08-10] MEDS: fentaNYL 50 MCG/ML SDV IVPUSH ONE (13:45)
[2024-08-10] MEDS: Sodium Chloride 0.9% 1,000 ML IV SCH (13:45)
== END 2024-08-10 14:30 | disposition short-term general hospital (02) ==
LOC: VM.ED 10:53
DX: K56.609 Unspecified intestinal obstruction, unspecified as to partial versus complete obstruction (principal); I10 Essential (primary) hypertension; E78.00 Pure hypercholesterolemia, unspecified; Z88.0 Allergy status to penicillin; Z88.1 Allergy status to other antibiotic agents; Z88.8 Allergy status to other drugs, medicaments and biological substances; Z79.82 Long term (current) use of aspirin; Z79.899 Other long term (current) drug therapy; Z90.710 Acquired absence of both cervix and uterus
CPT/HCPCS: 43752; 74018; 74176; 80053; 83605; 85027; 96361; 96374; 96375; 99285; J2405; J3010; J7030